=== PATIENT | female | born 1925 | race Caucasian/White ===

== ENCOUNTER 2016-05-08 16:21 | Emergency (ER) | payer MEDICARE ==
[2013-02-02 08:53] VITALS: BMI 34.3
[~2016-05-08 16:21] MED LIST: BENICAR40 MG PO; CADUET 5 MG/101 TAB PO; CALTRATE-600600 MG PO; COUMADIN2 MG PO; K-DUR20 MEQ PO; LANOXIN125 MCG PO; LASIX20 MG PO; LOPRESSOR50 MG PO; MIRALAX17 GM PO; NEXIUM40 MG PO; NORCO 10/325 TA1 TA1 PO; NORCO 7.5-3251 EACH PO; STOOL SOFTENER240 MG PO; TOPROL XL100 MG PO; TYLENOL 8 HOUR650 MG PO; VESICARE10 MG PO; VITAMIN D50000 UNIT PO; ZOFRAN4 MG PO
== END 2016-05-08 23:26 | disposition home or self-care (01) ==
LOC: D.ER 16:21
DX: S91.204A Unspecified open wound of right lesser toe(s) with damage to nail, initial encounter (principal); W22.8XXA Striking against or struck by other objects, initial encounter; Y93.89 Activity, other specified; Y92.89 Other specified places as the place of occurrence of the external cause; I10 Essential (primary) hypertension